=== PATIENT | male | born 1995 | race Caucasian/White ===

== ENCOUNTER 2020-09-27 13:09 | Inpatient (IN) | payer OTHER ==
[~2020-09-27] VITALS: Ht 182.9 cm; Wt 87.2 kg
[2020-09-27 13:30] VITALS: BP 129/54; PULSE 112; TEMP 100.4
[2020-09-27] MEDS ORDERED: TYLENOL 325MG325 MG (14:12)
[2020-09-27 15:59] LABS: MONOSCREEN NEGATIVE
[2020-09-27 16:25] VITALS: BP 126/67; PULSE 102; TEMP 99
--- NOTE | 2020-09-27 18:11 | NUR ---
PT PLEASANT, AOX4 IN ROOM, DROPLET PRECAUTIONS IN PLACE, TELE ON PT TACHY, NO OTHER NEEDS.
[2020-09-27 19:52] VITALS: BP 125/75; PULSE 100; TEMP 98.8
[2020-09-28] VITALS (7 sets, daily range): BP systolic 90–130; BP diastolic 62–90; PULSE 68–93; TEMP 97.6–98.2
--- NOTE | 2020-09-28 01:29 | NUR ---
2114- PT SETTING UP IN BED. ASSESSMENT DONE. STOMACH FEELS UNEASY, DENIES N/V BUT NOT ABLE TO EAT DINNER. RATES PAIN 4/10, MORE LIKE PRESSURE IN MID CHEST. MILD SOA W DEEP BREATHING. GAVE IBU ORDER ALONG W PM MEDS. IV RUNNING TO L UPPER ARM NS AT 125ML/HR. 2299- PT C/O PRESSURE IN CHEST 7/10. LASHON MANZANO NOTIFED AND ORDER NORCO, REPEATED AFTER 30 MIN CONT TO RATE 6/10. X 2 TABS GIVEN TOTAL. 0000- RESTING W EYES CLOSED RESP EVEN AND UNLABORED.
--- NOTE | 2020-09-28 04:04 | NUR ---
report to julio pt having same pain but feels like its increasing in rating 8/10. norco x 2 tabs and teslan perles for cough given. VSS. Will repeat ekg this am and continue to monitor for changes.
--- NOTE | 2020-09-28 04:09 | NUR ---
UPDATED PT ON POC, EKG THIS AM. HE STATES THAT LAST WEEK WHEN HE WAS HAVING THIS PAIN AND SOA ALBUTEROL INHALER GAVE HIM SOME RELEIF BUT FEELS HE IS NOT SOA AT THIS TIME BUT WILL KEEP US UPDATED IF THAT CHANGES.
[2020-09-28 07:39] LABS: BASO % 0.3 % (0.0-2.0); EOS # 0.2 (0.0-0.7); EOS % 1.6 % (0-4.0); GRAN # 6.6 (1.4-6.5); GRAN % 71.8 % (42.2-75.2); HEMOGLOBIN 10.7 g/dl (13.5-18.0); LYMPH # 1.4 (1.2-3.4); MEAN CELL VOLUME 91 fl (80.0-100.0); MEAN CORPUSCULAR HEMOGLOBIN 30 pg (27.0-31.0); MEAN CORPUSCULAR HGB CONC 33 g/dl (33.0-37.0); MEAN PLATELET VOLUME 9.2 fl (7.4-10.4); MONO % 10.9 % (1.7-9.3); PLATELET COUNT 374 K/mm3 (130-400); RED BLOOD COUNT 3.55 M/mm3 (4.20-5.60); REDCELL DISTRIBUTION WIDTH-CV 12.4 % (11.5-14.5)
[2020-09-28 07:55] LABS: BILIRUBIN,TOTAL 0.8 mg/dL (0.0-1.0); CALCIUM 7.8 mg/dL (8.4-10.2); CREATININE, serum 0.64 (0.66-1.25); POTASSIUM 3.6 mmol/L (3.4-5.0); TOTAL PROTEIN 5.9 gm/dL (6.4-8.2)
[2020-09-28 07:59] LABS: HEMATOCRIT 32.2 % (42.0-52.0)
--- NOTE | 2020-09-28 08:37 | NUR ---
PT REPORTING IN L CHEST PAIN DESCRIBED [employer] PAIN WITH SHIFTS IN POSTION, LOWER PRESSURE THIS AM, PT PACING AROUND IN ROOM, PT COUGHING AND GRIMACING, SHARIFA MANZANO CALLED AND NOTIFIED, [place] RAPHAEL PAGED FOR CARDIOLOGY.
--- NOTE | 2020-09-28 09:48 | NUR ---
PT DOES NOT HAVE ANY GRIMACING AT REST OR WITH MOVEMENT, BP REASSESSED AFTER BOLUS AND HAD NORMALIZED, PT WANTING TO SHOWER, TECH ASSISTING IN WRAPPING UP IV.
[2020-09-28 10:19] LABS: ERYTHROCYTE SEDIMENTATION RATE 76 mm/hr (0-15)
--- NOTE | 2020-09-28 12:18 | NUR ---
First visit from the nuclear test technician. No needs right now.
--- NOTE | 2020-09-28 12:20 | NUR ---
PT ESCORTED OUT VIA EMS WITH PT BELONGINGS. PT LEAVING WITH DOUG JOHN, TELE DC'D, NO OTOHER NEEDS AT THIS TIME.
--- NOTE | 2020-09-28 12:37 | NUR ---
REPORT CALLED TO EDY.
--- NOTE | 2020-09-28 13:06 | NUR ---
The patient was transferred to [facility] for further care.
== END 2020-09-28 12:21 | disposition short-term general hospital (02) | DRG 316 ==
LOC: MEDICAL 13:09
PROVIDERS: Physician Assistant; ADMIT Hospitalist
DX: I30.9 Acute pericarditis, unspecified (principal); I31.4 Cardiac tamponade; R00.8 Other abnormalities of heart beat; I95.9 Hypotension, unspecified; Z90.49 Acquired absence of other specified parts of digestive tract; Z20.822 Contact with and (suspected) exposure to COVID-19
CPT/HCPCS: 99222-AI; 99239; J1885; J7030; J7040